=== PATIENT | male | born 1980 | race Caucasian/White ===

== ENCOUNTER 2020-01-15 06:58 | Emergency (ER) | payer BC ==
[~2020-01-15] VITALS: Ht 177.8 cm; Wt 86.2 kg
[~2020-01-15 06:58] MED LIST: ALEVE220 MG PO; BENADRYL ALLERG25 MG PO; LORATIDINE 10 M10 M1 PO; PEPCID AC20 M1 PO; PREDNISONE 10 M10 MG PO; [UNRECOGNIZED DRUG - OTHER] PO
[2020-01-15] MEDS ORDERED: PREDNISONE 20 M20 MG PO (07:21)
[2020-01-15] MEDS ORDERED: CLOTRIMAZOLE 1%15 G1 TOP (07:21)
[2020-01-15 07:41] VITALS: BP 125/94
== END 2020-01-15 07:41 | disposition home or self-care (01) ==
LOC: ER 06:58
DX: N48.1 Balanitis (principal); R07.0 Pain in throat; H57.89 Other specified disorders of eye and adnexa; Z88.6 Allergy status to analgesic agent; Z88.8 Allergy status to other drugs, medicaments and biological substances